=== PATIENT | male | born 1960 | race Caucasian/White ===

== ENCOUNTER 2017-10-10 15:41 | Emergency (ER) | payer OTHER ==
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
[2017-10-10 16:11] VITALS: BP 125/76; PULSE 93; TEMP 99.2; BMI 39.9
--- NOTE | 2017-10-10 18:25 | PDOC ---
Attending Attestation - Resident Resident Name: Tigre Sheets - ED Attending Attestation I have performed the following: I have examined & evaluated the patient, The case was reviewed & discussed with the resident, I agree w/resident's findings & plan, Exceptions are as noted - HPI HPI: 10/10/17 18:22 56 M with h/o DVT/PE on xarelto, ETOH abuse presents to ED after being found intoxicated. Pt was picked up by EMS after they found him lying on the ground. Pt denies any injury. He admits to drinking today and denies any other substances. Pt denies pain anywhere other than his baseline chronic lower back pain. Denies CP/SOB. Denies IRWIN/N/V. - Physicial Exam PE: 10/10/17 18:23 "GENERAL: Awake, alert, somnolent, in no acute distress. HEAD: No signs of trauma EYES: PERRLA, EOMI, sclera anicteric, conjunctiva clear ENT: Auricles normal inspection, hearing grossly normal, nares patent, oropharynx clear without exudates. Moist mucosa NECK: Nontender, no stepoffs, Normal ROM, supple, no lymphadenopathy, JVD, or masses LUNGS: Breath sounds equal, clear to auscultation bilaterally. No wheezes, and no crackles HEART: Regular rate and rhythm, normal S1 and S2, no murmurs, rubs or gallops ABDOMEN: Soft, nontender, normoactive bowel sounds. No guarding, no rebound. No masses EXTREMITIES: Normal range of motion, no edema. No clubbing or cyanosis. No cords, erythema, or tenderness NEUROLOGICAL: Cranial nerves II through XII intact. 5/5 strength and sensation in all extremities, + slurred speech SKIN: Warm, Dry, normal turgor, no rashes or lesions noted. " - Medical Decision Making 10/10/17 18:24 56 M presenting to ED acutely intoxicated. Likely ETOH. Pt with no external signs of trauma but given anticoagulation with xarelto, will obtain head CT. Pt without any track zhu on his skin. Low suspicion for other substance abuse. - CT head - Reassess and re-check vitals when clinically sober Pt signed out to oncoming attending at 7pm, pending CT and re-evaluation when sober.
== END 2017-10-10 22:54 | disposition home or self-care (01) ==
LOC: JER 15:41
DX: F10.120 Alcohol abuse with intoxication, uncomplicated (principal); Y90.9 Presence of alcohol in blood, level not specified; F11.20 Opioid dependence, uncomplicated; F13.10 Sedative, hypnotic or anxiolytic abuse, uncomplicated; K21.9 Gastro-esophageal reflux disease without esophagitis; Z86.718 Personal history of other venous thrombosis and embolism; Z86.711 Personal history of pulmonary embolism; Z79.01 Long term (current) use of anticoagulants
CPT/HCPCS: 70450-TC; 82962; 99282-25

== ENCOUNTER 2020-08-25 06:55 | Inpatient (IN) | payer OTHER ==
[2020-08-25 08:02] LABS: BASO % 0.4 % (0-2.0); EOS % 2.1 % (0-4.5); HEMOGLOBIN 11.2 GM/dL (11.7-16.9); LYMPH % 3.3 % (8-40); MCH 29.3 pg (25.7-33.7); MCHC 33.9 g/dl (32.0-35.9); MEAN CELL VOLUME 86.3 fl (80-96); MEAN PLT VOLUME 8.5 fl (7.5-11.1); MONO % 5.6 % (3.8-10.2); NEUT % 88.6 % (42.8-82.8); PLATELET COUNT 187 K/MM3 (134-434); RBC 3.82 M/mm3 (4.00-5.60); RDW 16.9 % (11.9-15.9); WHITE BLOOD COUNT 8.4 K/mm3 (4.0-10.0)
[2020-08-25 08:12] LABS: INR 1.59 (0.83-1.09)
[2020-08-25 08:15] LABS: ACTIVATED PTT 27.5 SECONDS (25.2-36.5)
[2020-08-25 08:27] LABS: ALBUMIN 2.8 g/dl (3.4-5.0); BLOOD UREA NITROGEN 13.5 mg/dL (7-18); MAGNESIUM 1.8 mg/dL (1.8-2.4)
[2020-08-25 08:30] LABS: PHOSPHOROUS 2.8 mg/dL (2.5-4.9)
[2020-08-25 08:32] LABS: BILIRUBIN,TOTAL 0.7 mg/dL (0.2-1); TOT PROT 6.6 g/dl (6.4-8.2)
[2020-08-25 08:35] LABS: N-TERMINAL BNP 294.8 pg/ml (5-125)
[2020-08-25] MEDS ORDERED: SODIUM CHLORIDE 0.9% 500 ML INFUS.BAG IV ONE (08:39)
[2020-08-25] MEDS ORDERED: METHADONE HCL 10 MG TABLET (FOR DETOX USE ONLY) PO ONE ×2 (09:19→09:31)
[2020-08-25] MEDS ORDERED: METHADONE HCL 40 MG DISPERSABLE TABLET ONE (09:33)
[2020-08-25] MEDS ORDERED: AZITHROMYCIN IVPB 500 MG in DEXTROSE 5%-WATER - 250 ML IVPB ONE (11:02)
[2020-08-25] MEDS ORDERED: CEFTRIAXONE 1,000 MG in DEXTROSE 5%-WATER - 50 ML IVPB ONE (11:02)
[2020-08-25] MEDS ORDERED: CEFTRIAXONE 1 GM/50 ML BAG ONE (12:57)
[2020-08-25] MEDS ORDERED: AZITHROMYCIN IVPB 500 MG/250 ML BAG IVPB ONE (12:58)
[2020-08-25] MEDS ORDERED: PT OWN MED DRAWER 7, Y5N ONE ×2 (14:34→16:46)
[2020-08-25] MEDS ORDERED: ALBUTEROL SO4 2.5/IPRATROPIUM 0.5 INH SOL 3 ML VIAL.NEB. NEB PRN (14:53)
[2020-08-25] MEDS: GABAPENTIN 300 MG CAPSULE PO SCH ×2 (15:01→21:17)
[2020-08-25] MEDS ORDERED: MAGNESIUM SULF 50% (8.12 MEQ/2 ML-1 GM VIAL) IVPB ONE (16:11)
[2020-08-25] MEDS ORDERED: MAGNESIUM SULFATE IN WATER 2 GM/50 ML IVPB IVPB ONE (16:45)
[2020-08-25] MEDS: ALLOPURINOL 100 MG TABLET (FP) PO SCH (17:57)
[2020-08-25] MEDS ORDERED: DEXTROSE 5%-WATER 100 ML IVPB ONE (21:14)
[2020-08-25] MEDS ORDERED: DOXYCYCLINE HYCLATE 100 MG VIAL ONE (21:14)
[2020-08-25] MEDS: RIVAROXABAN 20 MG TABLET PO SCH (21:17)
[2020-08-25] MEDS: DOXYCYCLINE INJECTION 100 MG in DEXTROSE 5%-WATER 100 ML IVPB SCH (21:18)
[2020-08-25] MEDS: ROSUVASTATIN CA 10 MG TABLET (FP) PO SCH (21:18)
[2020-08-25] MEDS ORDERED: GABAPENTIN 300 MG CAPSULE PO ONE (21:34)
[2020-08-26 01:15] VITALS: BMI 38.0
[2020-08-26] MEDS ORDERED: METHADONE HCL 40 MG DISPERSABLE TABLET PO SCH (06:00)
[2020-08-26] MEDS: GABAPENTIN 300 MG CAPSULE PO SCH ×4 (06:18→21:30)
[2020-08-26] MEDS: METHADONE HCL 40 MG DISPERSABLE TABLET PO SCH (06:18)
[2020-08-26 07:12] LABS: BASO % 0.1 % (0-2.0); EOS % 3.6 % (0-4.5); HEMATOCRIT 31.7 % (35.4-49); HEMOGLOBIN 10.6 GM/dL (11.7-16.9); LYMPH % 6.5 % (8-40); MCH 28.9 pg (25.7-33.7); MCHC 33.5 g/dl (32.0-35.9); MEAN CELL VOLUME 86.3 fl (80-96); MEAN PLT VOLUME 8.6 fl (7.5-11.1); MONO % 7.7 % (3.8-10.2); NEUT % 82.1 % (42.8-82.8); PLATELET COUNT 184 K/MM3 (134-434); RBC 3.68 M/mm3 (4.00-5.60); RDW 16.9 % (11.9-15.9); WHITE BLOOD COUNT 7.6 K/mm3 (4.0-10.0)
[2020-08-26 07:25] LABS: CALCIUM 7.5 mg/dL (8.5-10.1)
[2020-08-26 07:26] LABS: ALBUMIN 2.4 g/dl (3.4-5.0); BLOOD UREA NITROGEN 8.2 mg/dL (7-18); INR 1.61 (0.83-1.09); MAGNESIUM 2.1 mg/dL (1.8-2.4); PROTHROMBIN TIME (PATIENT) 19.2 SEC (9.7-13.0)
[2020-08-26 07:29] LABS: CREATININE 0.8 mg/dL (0.55-1.3); PHOSPHOROUS 3.6 mg/dL (2.5-4.9)
[2020-08-26 07:30] LABS: BILIRUBIN,TOTAL 0.5 mg/dL (0.2-1)
[2020-08-26] MEDS ORDERED: POTASSIUM CHLORIDE TABS 20 MEQ TABLET.ER (FP) PO ONE (08:50)
[2020-08-26] MEDS ORDERED: AZITHROMYCIN IVPB 500 MG/250 ML BAG IVPB SCH (10:00)
[2020-08-26] MEDS ORDERED: CEFTRIAXONE 1 GM in DEXTROSE 5%-WATER - 50 ML IVPB ONE (10:00)
[2020-08-26] MEDS ORDERED: DOXYCYCLINE HYCLATE 100 MG VIAL ONE ×2 (10:04→21:26)
[2020-08-26] MEDS ORDERED: DEXTROSE 5%-WATER 100 ML IVPB ONE ×2 (10:04→21:27)
[2020-08-26] MEDS ORDERED: cefTRIAXone SODIUM 1 GM VIAL ONE (10:05)
[2020-08-26] MEDS ORDERED: DEXTROSE 5%-WATER - 50 ML IVPB ONE (10:05)
[2020-08-26] MEDS: TAMSULOSIN HCL 0.4 MG CAP PO SCH (10:08)
[2020-08-26] MEDS: LOSARTAN POTASSIUM 25 MG TABLET PO SCH (10:09)
[2020-08-26] MEDS: DOXYCYCLINE INJECTION 100 MG in DEXTROSE 5%-WATER 100 ML IVPB SCH ×2 (10:09→21:30)
[2020-08-26] MEDS: FAMOTIDINE 20 MG TABLET PO SCH (10:09)
[2020-08-26] MEDS: ALLOPURINOL 100 MG TABLET (FP) PO SCH (10:09)
[2020-08-26] MEDS: CITALOPRAM HYDROBROMIDE 10 MG TABLET PO SCH (10:09)
[2020-08-26] MEDS ORDERED: PT OWN MED DRAWER 7, Y5N ONE (13:01)
[2020-08-26] MEDS: RIVAROXABAN 20 MG TABLET PO SCH (16:34)
[2020-08-26] MEDS: ROSUVASTATIN CA 10 MG TABLET (FP) PO SCH (21:31)
[2020-08-27] MEDS: METHADONE HCL 40 MG DISPERSABLE TABLET PO SCH (05:51)
[2020-08-27] MEDS: GABAPENTIN 300 MG CAPSULE PO SCH ×3 (05:52→21:44)
[2020-08-27 08:38] LABS: BASO % 0.4 % (0-2.0); EOS % 6.9 % (0-4.5); HEMATOCRIT 35.2 % (35.4-49); HEMOGLOBIN 11.8 GM/dL (11.7-16.9); LYMPH % 6.4 % (8-40); MCH 29.1 pg (25.7-33.7); MCHC 33.5 g/dl (32.0-35.9); MEAN PLT VOLUME 8.1 fl (7.5-11.1); MONO % 7.1 % (3.8-10.2); NEUT % 79.2 % (42.8-82.8); PLATELET COUNT 221 K/MM3 (134-434); RBC 4.05 M/mm3 (4.00-5.60); RDW 17.2 % (11.9-15.9); WHITE BLOOD COUNT 8.1 K/mm3 (4.0-10.0)
[2020-08-27 09:10] LABS: ALBUMIN 2.7 g/dl (3.4-5.0); BLOOD UREA NITROGEN 8.8 mg/dL (7-18)
[2020-08-27 09:13] LABS: CREATININE 0.9 mg/dL (0.55-1.3)
[2020-08-27 09:15] LABS: BILIRUBIN,TOTAL 0.4 mg/dL (0.2-1); TOT PROT 6.7 g/dl (6.4-8.2)
[2020-08-27] MEDS ORDERED: cefTRIAXone SODIUM 1 GM VIAL ONE (09:38)
[2020-08-27] MEDS ORDERED: DEXTROSE 5%-WATER - 50 ML IVPB ONE (09:38)
[2020-08-27] MEDS: FAMOTIDINE 20 MG TABLET PO SCH (10:01)
[2020-08-27] MEDS: CITALOPRAM HYDROBROMIDE 10 MG TABLET PO SCH (10:01)
[2020-08-27] MEDS: TAMSULOSIN HCL 0.4 MG CAP PO SCH (10:01)
[2020-08-27] MEDS: ALLOPURINOL 100 MG TABLET (FP) PO SCH (10:01)
[2020-08-27] MEDS: LOSARTAN POTASSIUM 25 MG TABLET PO SCH (10:02)
[2020-08-27] MEDS: CEFTRIAXONE 1 GM in DEXTROSE 5%-WATER - 50 ML IVPB SCH (10:02)
[2020-08-27] MEDS ORDERED: DOXYCYCLINE HYCLATE 100 MG VIAL ONE ×2 (10:55→21:36)
[2020-08-27] MEDS ORDERED: DEXTROSE 5%-WATER 100 ML IVPB ONE ×2 (10:56→21:36)
[2020-08-27] MEDS: DOXYCYCLINE INJECTION 100 MG in DEXTROSE 5%-WATER 100 ML IVPB SCH ×2 (11:02→21:43)
[2020-08-27] MEDS: RIVAROXABAN 20 MG TABLET PO SCH (16:44)
[2020-08-27] MEDS: ROSUVASTATIN CA 10 MG TABLET (FP) PO SCH (21:44)
[2020-08-28] MEDS: GABAPENTIN 300 MG CAPSULE PO SCH ×3 (05:52→21:10)
[2020-08-28] MEDS: METHADONE HCL 40 MG DISPERSABLE TABLET PO SCH (05:52)
[2020-08-28 06:56] LABS: BASO % 0.4 % (0-2.0); EOS % 10.1 % (0-4.5); HEMATOCRIT 31.4 % (35.4-49); HEMOGLOBIN 10.7 GM/dL (11.7-16.9); LYMPH % 11.6 % (8-40); MCH 29.4 pg (25.7-33.7); MEAN CELL VOLUME 86.5 fl (80-96); MEAN PLT VOLUME 8.1 fl (7.5-11.1); NEUT % 69.9 % (42.8-82.8); PLATELET COUNT 216 K/MM3 (134-434); RBC 3.63 M/mm3 (4.00-5.60); RDW 17.2 % (11.9-15.9); WHITE BLOOD COUNT 5.9 K/mm3 (4.0-10.0)
[2020-08-28 07:30] LABS: CALCIUM 7.8 mg/dL (8.5-10.1)
[2020-08-28 07:31] LABS: ALBUMIN 2.4 g/dl (3.4-5.0); BLOOD UREA NITROGEN 9.9 mg/dL (7-18); MAGNESIUM 2.1 mg/dL (1.8-2.4)
[2020-08-28 07:35] LABS: BILIRUBIN,TOTAL 0.4 mg/dL (0.2-1); TOT PROT 6.2 g/dl (6.4-8.2)
[2020-08-28] MEDS ORDERED: POTASSIUM CHLORIDE TABS 20 MEQ TABLET.ER (FP) PO ONE (08:45)
[2020-08-28] MEDS ORDERED: DEXTROSE 5%-WATER 100 ML IVPB ONE ×2 (09:19→21:00)
[2020-08-28] MEDS ORDERED: DOXYCYCLINE HYCLATE 100 MG VIAL ONE ×2 (09:19→21:00)
[2020-08-28] MEDS ORDERED: DEXTROSE 5%-WATER - 50 ML IVPB ONE (09:20)
[2020-08-28] MEDS ORDERED: cefTRIAXone SODIUM 1 GM VIAL ONE (09:20)
[2020-08-28] MEDS: ALLOPURINOL 100 MG TABLET (FP) PO SCH (10:03)
[2020-08-28] MEDS: FAMOTIDINE 20 MG TABLET PO SCH (10:03)
[2020-08-28] MEDS: TAMSULOSIN HCL 0.4 MG CAP PO SCH (10:04)
[2020-08-28] MEDS: CITALOPRAM HYDROBROMIDE 10 MG TABLET PO SCH (10:04)
[2020-08-28] MEDS: LOSARTAN POTASSIUM 25 MG TABLET PO SCH (10:04)
[2020-08-28] MEDS: DOXYCYCLINE INJECTION 100 MG in DEXTROSE 5%-WATER 100 ML IVPB SCH ×2 (10:05→21:09)
[2020-08-28] MEDS: CEFTRIAXONE 1 GM in DEXTROSE 5%-WATER - 50 ML IVPB SCH (10:05)
[2020-08-28] MEDS: POLYETHYLENE GLYCOL 3350 119 GM BTL PO SCH ×2 (12:56→21:10)
[2020-08-28] MEDS ORDERED: BISACODYL 5 MG TABLET.DR (FP) PO ONE (13:00)
[2020-08-28] MEDS ORDERED: DOCUSATE SODIUM 100 MG CAPSULE (FP) PO ONE (13:00)
[2020-08-28] MEDS: RIVAROXABAN 20 MG TABLET PO SCH (17:43)
[2020-08-28] MEDS ORDERED: PT OWN MED DRAWER 7, Y5N ONE (21:04)
[2020-08-28] MEDS: ROSUVASTATIN CA 10 MG TABLET (FP) PO SCH (21:10)
[2020-08-28] MEDS: BUDESONIDE/FORMETEROL FUMARATE 160/4.5 mcg INHALER IH SCH (21:10)
[2020-08-29] MEDS: GABAPENTIN 300 MG CAPSULE PO SCH (06:47)
[2020-08-29] MEDS: METHADONE HCL 40 MG DISPERSABLE TABLET PO SCH (06:47)
[2020-08-29 07:01] LABS: ALBUMIN 2.6 g/dl (3.4-5.0); BLOOD UREA NITROGEN 10.1 mg/dL (7-18); CALCIUM 7.8 mg/dL (8.5-10.1)
[2020-08-29 07:04] LABS: BASO % 0.4 % (0-2.0); EOS % 7.6 % (0-4.5); HEMATOCRIT 34.1 % (35.4-49); HEMOGLOBIN 11.3 GM/dL (11.7-16.9); LYMPH % 12.3 % (8-40); MCH 28.8 pg (25.7-33.7); MCHC 33.1 g/dl (32.0-35.9); MEAN CELL VOLUME 87.2 fl (80-96); MEAN PLT VOLUME 7.8 fl (7.5-11.1); MONO % 6.8 % (3.8-10.2); NEUT % 72.9 % (42.8-82.8); PLATELET COUNT 241 K/MM3 (134-434); RBC 3.91 M/mm3 (4.00-5.60); RDW 16.7 % (11.9-15.9); WHITE BLOOD COUNT 7.7 K/mm3 (4.0-10.0)
[2020-08-29 07:05] LABS: TOT PROT 6.4 g/dl (6.4-8.2)
[2020-08-29 07:09] LABS: BILIRUBIN,TOTAL 0.4 mg/dL (0.2-1)
[2020-08-29 08:00] VITALS: TEMP 98.1
[2020-08-29] MEDS ORDERED: DOXYCYCLINE HYCLATE 100 MG VIAL ONE (10:31)
[2020-08-29] MEDS ORDERED: DEXTROSE 5%-WATER 100 ML IVPB ONE (10:32)
[2020-08-29] MEDS ORDERED: cefTRIAXone SODIUM 1 GM VIAL ONE (10:33)
[2020-08-29] MEDS ORDERED: DEXTROSE 5%-WATER - 50 ML IVPB ONE (10:33)
[2020-08-29] MEDS: BUDESONIDE/FORMETEROL FUMARATE 160/4.5 mcg INHALER IH SCH (10:37)
[2020-08-29] MEDS: LOSARTAN POTASSIUM 25 MG TABLET PO SCH (10:37)
[2020-08-29] MEDS: ALLOPURINOL 100 MG TABLET (FP) PO SCH (10:37)
[2020-08-29] MEDS: FAMOTIDINE 20 MG TABLET PO SCH (10:37)
[2020-08-29] MEDS: CITALOPRAM HYDROBROMIDE 10 MG TABLET PO SCH (10:37)
[2020-08-29] MEDS: TAMSULOSIN HCL 0.4 MG CAP PO SCH (10:37)
[2020-08-29] MEDS: DOXYCYCLINE INJECTION 100 MG in DEXTROSE 5%-WATER 100 ML IVPB SCH (10:41)
[2020-08-29] MEDS: CEFTRIAXONE 1 GM in DEXTROSE 5%-WATER - 50 ML IVPB SCH (10:41)
[2020-08-29] MEDS: POLYETHYLENE GLYCOL 3350 119 GM BTL PO SCH (10:49)
[2020-08-29 12:10] VITALS: BP 110/71; PULSE 93
== END 2020-08-29 14:13 | disposition home health service (06) | DRG 139 ==
LOC: JER 06:55 → JERBED 11:45 → J5S 18:17 → J4S 08-26 02:19
PROVIDERS: ATTEND Nurse Practitioner Family
DX: J18.9 Pneumonia, unspecified organism (principal); E78.5 Hyperlipidemia, unspecified; Z86.711 Personal history of pulmonary embolism; Z86.718 Personal history of other venous thrombosis and embolism; M10.9 Gout, unspecified; F11.20 Opioid dependence, uncomplicated; I10 Essential (primary) hypertension; J96.01 Acute respiratory failure with hypoxia; E66.9 Obesity, unspecified; Z68.38 Body mass index [BMI] 38.0-38.9, adult; M54.5 Low back pain
CPT/HCPCS: 36415; 71045-TC-FY; 71275-TC; 80053; 83735; 83880; 84100; 85025; 85610; 85730; 86769; 87040; 87070; 87077; 87205; 87804; 87899; 93005; 93010; 93971-TC; 94761; 97116-GP; 97161-GP; 99285-25; C9803; U0003; U0005

== ENCOUNTER 2021-01-16 09:13 | Inpatient (IN) | payer OTHER ==
[2021-01-16] MEDS ORDERED: methylPREDNISolone NA SUCC 40 MG/1 ML VIAL IVPUSH ONE (09:28)
[2021-01-16] MEDS ORDERED: methylPREDNISolone NA SUCC 40 MG/1 ML VIAL ONE (09:40)
[2021-01-16] MEDS ORDERED: ACETAMINOPHEN 1000 MG/100 ML VIAL IVPB ONE (09:51)
[2021-01-16] MEDS: ALBUTEROL SO4 2.5/IPRATROPIUM 0.5 INH SOL 3 ML VIAL.NEB. NEB SCH ×4 (10:00→11:30)
[2021-01-16 10:24] LABS: BASO % 0.4 % (0-2.0); EOS % 3.6 % (0-4.5); HEMATOCRIT 32.2 % (35.4-49); HEMOGLOBIN 10.8 GM/dL (11.7-16.9); LYMPH % 5.5 % (8-40); MCH 29.8 pg (25.7-33.7); MCHC 33.6 g/dl (32.0-35.9); MEAN CELL VOLUME 88.8 fl (80-96); MEAN PLT VOLUME 8.2 fl (7.5-11.1); MONO % 6.3 % (3.8-10.2); NEUT % 84.2 % (42.8-82.8); PLATELET COUNT 241 10^3/uL (134-434); RBC 3.63 M/mm3 (4.00-5.60); WHITE BLOOD COUNT 8.3 K/mm3 (4.0-10.0)
[2021-01-16 10:36] LABS: VENOUS BASE EXCESS 2.7 mmol/L (-2-2); VENOUS O2 SATURATION 74.7 % (70-80); VENOUS PCO2 44.5 mmHg (38-52); VENOUS PH 7.413 (7.310-7.410)
[2021-01-16] MEDS ORDERED: ACETAMINOPHEN INJECTION 100 ML IVPB ONE (10:40)
[2021-01-16 10:43] LABS: CHLORIDE 101 mmol/L (98-107); SODIUM 136 mmol/L (136-145)
[2021-01-16 10:45] LABS: ALBUMIN 2.6 g/dl (3.4-5.0); ANION GAP 8 MMOL/L (8-16); CO2 28 mmol/L (21-32)
[2021-01-16 10:46] LABS: GLUCOSE,RANDOM 100 mg/dL (74-106)
[2021-01-16 10:49] LABS: CREATININE 1.1 mg/dL (0.55-1.3); SGOT/AST 84 U/L (15-37); SGPT/ALT 31 U/L (13-61)
[2021-01-16 10:50] LABS: BILIRUBIN,TOTAL 0.6 mg/dL (0.2-1); TOT PROT 6.9 g/dl (6.4-8.2)
[2021-01-16 10:51] LABS: ALK PHOS 105 U/L (45-117)
[2021-01-16] MEDS ORDERED: CEFTRIAXONE 1 GM in DEXTROSE 5%-WATER - 100 ML IVPB ONE (12:56)
[2021-01-16] MEDS ORDERED: CEFTRIAXONE 1 GM/50 ML BAG ONE (13:08)
[2021-01-16 13:29] LABS: N-TERMINAL BNP 1630.9 pg/ml (5-125)
[2021-01-16] MEDS ORDERED: AZITHROMYCIN IVPB 500 MG/250 ML BAG IVPB ONE ×2 (13:52→14:08)
[2021-01-16] MEDS ORDERED: PANTOPRAZOLE 40 MG TABLET ONE (14:08)
[2021-01-16] MEDS: PANTOPRAZOLE 40 MG TABLET PO SCH (14:22)
[2021-01-16] MEDS ORDERED: SODIUM CHLORIDE 1,000 ML IV SCH ×2 (14:45→20:15)
[2021-01-16] MEDS ORDERED: ALBUTEROL SO4 HFA INHALER IH PRN ×2 (14:53→15:02)
[2021-01-16] MEDS ORDERED: ENOXAPARIN NA (PORCINE) 40 MG/0.4 ML DISP.SYRIN SQ SCH (15:00)
[2021-01-16] MEDS ORDERED: GABAPENTIN 100 MG CAPSULE ONE (15:04)
[2021-01-16] MEDS ORDERED: LOSARTAN POTASSIUM 50 MG TABLET ONE (15:04)
[2021-01-16] MEDS: GABAPENTIN 300 MG CAPSULE PO SCH ×2 (15:07→21:17)
[2021-01-16] MEDS: LOSARTAN POTASSIUM 50 MG TABLET PO SCH (15:07)
[2021-01-16 15:37] LABS: PH,URINE 5.5 (5.0-8.0); URINE APPEARANCE CLEAR; URINE BILIRUBIN NEGATIVE (NEGATIVE); URINE COLOR YELLOW; URINE GLUCOSE (UA) TRACE (NEGATIVE); URINE KETONE TRACE (NEGATIVE); URINE LEUK ESTERASE NEGATIVE (NEGATIVE); URINE NITRITE NEGATIVE (NEGATIVE); URINE PROTEIN NEGATIVE (NEGATIVE); URINE UROBILINOGEN 0.2 mg/dL (0.2-1.0)
[2021-01-16] MEDS ORDERED: ALBUTEROL SO4 2.5/IPRATROPIUM 0.5 INH SOL 3 ML VIAL.NEB. NEB PRN (15:49)
[2021-01-16 16:34] VITALS: BMI 37.5
[2021-01-16] MEDS ORDERED: FLU VACC QS2021-22(6MOS UP)/PF 60 MCG/0.5 ML SYRINGE IM ONE (16:34)
[2021-01-16] MEDS: RIVAROXABAN 20 MG TABLET PO SCH (17:32)
[2021-01-16] MEDS: methylPREDNISolone NA SUCC 40 MG/1 ML VIAL IVPUSH SCH (17:32)
[2021-01-16] MEDS ORDERED: PT OWN MED DRAWER 7, Y5N ONE (17:36)
[2021-01-16] MEDS: ALBUTEROL SO4 0.083% IH SOL 2.5 MG/3 ML VIAL.NEB. NEB SCH ×3 (17:52→23:50)
[2021-01-16] MEDS ORDERED: INSULIN SLIDING SCALE (NOVOLOG) 1 VIAL SQ ONE (17:58)
[2021-01-16] MEDS ORDERED: methylPREDNISolone NA SUCC 40 MG/1 ML VIAL IVPUSH SCH (18:00)
[2021-01-16 18:33] LABS: OPIATES, URI NEGATIVE (NEGATIVE); PHENCYCLIDINE,URINE NEGATIVE (NEGATIVE); URINE BARBITURATES NEGATIVE (NEGATIVE)
[2021-01-16 18:34] LABS: COCAINE, UR NEGATIVE (NEGATIVE); URINE BENZODIAZEPINES NEGATIVE (NEGATIVE)
[2021-01-16 18:38] LABS: METHADONE, UR POSITIVE (NEGATIVE); URINE AMPHETAMINES NEGATIVE (NEGATIVE)
[2021-01-16 19:51] LABS: LACTIC ACID 2.3 mmol/L (0.4-2.0)
[2021-01-16] MEDS: ROSUVASTATIN CA 10 MG TABLET (FP) PO SCH (21:17)
[2021-01-16] MEDS: BUDESONIDE/FORMETEROL FUMARATE 160/4.5 mcg INHALER IH SCH (21:39)
[2021-01-17] MEDS: methylPREDNISolone NA SUCC 40 MG/1 ML VIAL IVPUSH SCH ×3 (01:33→18:10)
[2021-01-17] MEDS: ALBUTEROL SO4 0.083% IH SOL 2.5 MG/3 ML VIAL.NEB. NEB SCH ×5 (04:23→20:09)
[2021-01-17] MEDS: GABAPENTIN 300 MG CAPSULE PO SCH ×3 (05:46→21:00)
[2021-01-17] MEDS: methaDONE HCL 40 MG DISPERSABLE TABLET PO SCH (06:20)
[2021-01-17 09:52] LABS: HEMATOCRIT 32.6 % (35.4-49); HEMOGLOBIN 10.8 GM/dL (11.7-16.9); MEAN CELL VOLUME 87.7 fl (80-96); MEAN PLT VOLUME 8.3 fl (7.5-11.1); PLATELET COUNT 245 10^3/uL (134-434); RBC 3.72 M/mm3 (4.00-5.60); RDW 15.6 % (11.9-15.9); WHITE BLOOD COUNT 7.8 K/mm3 (4.0-10.0)
[2021-01-17 10:30] LABS: ALBUMIN 2.7 g/dl (3.4-5.0); BLOOD UREA NITROGEN 14.6 mg/dL (7-18); CALCIUM 8.4 mg/dL (8.5-10.1)
[2021-01-17] MEDS ORDERED: DEXTROSE 5%-WATER - 50 ML IVPB ONE (10:32)
[2021-01-17] MEDS ORDERED: cefTRIAXone SODIUM 1 GM VIAL ONE (10:32)
[2021-01-17 10:33] LABS: CREATININE 0.9 mg/dL (0.55-1.3); PHOSPHOROUS 3.8 mg/dL (2.5-4.9)
[2021-01-17 10:34] LABS: BILIRUBIN,TOTAL 0.6 mg/dL (0.2-1)
[2021-01-17 10:35] LABS: TOT PROT 6.8 g/dl (6.4-8.2)
[2021-01-17] MEDS: ALLOPURINOL 100 MG TABLET (FP) PO SCH (10:37)
[2021-01-17] MEDS: PANTOPRAZOLE 40 MG TABLET PO SCH (10:37)
[2021-01-17] MEDS: CITALOPRAM HYDROBROMIDE 20 MG TABLET PO SCH (10:37)
[2021-01-17] MEDS: LOSARTAN POTASSIUM 50 MG TABLET PO SCH (10:37)
[2021-01-17] MEDS: TAMSULOSIN HCL 0.4 MG CAP PO SCH (10:37)
[2021-01-17] MEDS: CEFTRIAXONE 1 GM in DEXTROSE 5%-WATER - 50 ML IVPB SCH (10:38)
[2021-01-17] MEDS: BUDESONIDE/FORMETEROL FUMARATE 160/4.5 mcg INHALER IH SCH ×2 (11:04→21:00)
[2021-01-17] MEDS: AZITHROMYCIN IVPB 250 MG in DEXTROSE 5%-WATER - 250 ML IVPB SCH (11:06)
[2021-01-17] MEDS ORDERED: GABAPENTIN 300 MG CAPSULE PO ONE (12:34)
[2021-01-17 12:46] LABS: ANISOCYTOSIS 1+; MACROCYTOSIS 0; PLATELET ESTIMATE NORMAL; TARGET CELLS 1+
[2021-01-17] MEDS: TIOTROPIUM BROMIDE 2.5 MCG (SPIRIVA) RESPIMAT INHALER IH SCH (14:50)
[2021-01-17] MEDS: RIVAROXABAN 20 MG TABLET PO SCH (18:10)
[2021-01-17] MEDS: ROSUVASTATIN CA 10 MG TABLET (FP) PO SCH (21:00)
[2021-01-18] MEDS: ALBUTEROL SO4 0.083% IH SOL 2.5 MG/3 ML VIAL.NEB. NEB SCH ×7 (00:05→23:34)
[2021-01-18] MEDS: methylPREDNISolone NA SUCC 40 MG/1 ML VIAL IVPUSH SCH ×3 (01:39→17:43)
[2021-01-18] MEDS: GABAPENTIN 300 MG CAPSULE PO SCH ×3 (05:29→21:04)
[2021-01-18] MEDS: methaDONE HCL 40 MG DISPERSABLE TABLET PO SCH (05:29)
[2021-01-18 08:06] LABS: HEMATOCRIT 32.3 % (35.4-49); HEMOGLOBIN 10.8 GM/dL (11.7-16.9); MCH 29.8 pg (25.7-33.7); MCHC 33.4 g/dl (32.0-35.9); MEAN CELL VOLUME 89.1 fl (80-96); MEAN PLT VOLUME 8.2 fl (7.5-11.1); PLATELET COUNT 300 10^3/uL (134-434); RBC 3.63 M/mm3 (4.00-5.60); WHITE BLOOD COUNT 6.4 K/mm3 (4.0-10.0)
[2021-01-18 08:33] LABS: ALBUMIN 2.7 g/dl (3.4-5.0); BLOOD UREA NITROGEN 16.1 mg/dL (7-18)
[2021-01-18 08:35] LABS: BILIRUBIN,TOTAL 0.3 mg/dL (0.2-1); TOT PROT 6.8 g/dl (6.4-8.2)
[2021-01-18 08:36] LABS: CALCIUM 8.4 mg/dL (8.5-10.1)
[2021-01-18 08:37] LABS: MAGNESIUM 2.2 mg/dL (1.8-2.4)
[2021-01-18] MEDS ORDERED: DEXTROSE 5%-WATER - 50 ML IVPB ONE (09:44)
[2021-01-18] MEDS ORDERED: cefTRIAXone SODIUM 1 GM VIAL ONE (09:44)
[2021-01-18] MEDS ORDERED: PT OWN MED DRAWER 7, Y5N ONE (09:44)
[2021-01-18] MEDS: CEFTRIAXONE 1 GM in DEXTROSE 5%-WATER - 50 ML IVPB SCH (09:54)
[2021-01-18] MEDS: ALLOPURINOL 100 MG TABLET (FP) PO SCH (09:54)
[2021-01-18] MEDS: PANTOPRAZOLE 40 MG TABLET PO SCH (09:54)
[2021-01-18] MEDS: TAMSULOSIN HCL 0.4 MG CAP PO SCH (09:54)
[2021-01-18] MEDS: CITALOPRAM HYDROBROMIDE 20 MG TABLET PO SCH (09:54)
[2021-01-18] MEDS: LOSARTAN POTASSIUM 50 MG TABLET PO SCH (09:55)
[2021-01-18] MEDS: BUDESONIDE/FORMETEROL FUMARATE 160/4.5 mcg INHALER IH SCH ×2 (09:55→21:04)
[2021-01-18] MEDS: TIOTROPIUM BROMIDE 2.5 MCG (SPIRIVA) RESPIMAT INHALER IH SCH (09:55)
[2021-01-18 12:01] LABS: ANISOCYTOSIS 1+; MACROCYTOSIS 0; PLATELET ESTIMATE NORMAL
[2021-01-18] MEDS: AZITHROMYCIN IVPB 250 MG in DEXTROSE 5%-WATER - 250 ML IVPB SCH (13:40)
[2021-01-18] MEDS: RIVAROXABAN 20 MG TABLET PO SCH (17:43)
[2021-01-18] MEDS: ROSUVASTATIN CA 10 MG TABLET (FP) PO SCH (21:04)
[2021-01-18] MEDS ORDERED: ACETAMINOPHEN 325 MG TABLET (FP) PO ONE (21:54)
[2021-01-18] MEDS ORDERED: traMADol HCL 50 MG TABLET PO ONE (23:26)
[2021-01-19] MEDS: methylPREDNISolone NA SUCC 40 MG/1 ML VIAL IVPUSH SCH ×3 (01:59→19:49)
[2021-01-19] MEDS: ALBUTEROL SO4 0.083% IH SOL 2.5 MG/3 ML VIAL.NEB. NEB SCH ×5 (03:53→20:10)
[2021-01-19] MEDS: methaDONE HCL 40 MG DISPERSABLE TABLET PO SCH (06:23)
[2021-01-19] MEDS: GABAPENTIN 300 MG CAPSULE PO SCH ×3 (06:23→21:12)
[2021-01-19 08:44] LABS: BASO % 0.1 % (0-2.0); EOS % 0.1 % (0-4.5); HEMATOCRIT 32.4 % (35.4-49); HEMOGLOBIN 10.9 GM/dL (11.7-16.9); LYMPH % 7.5 % (8-40); MCH 29.5 pg (25.7-33.7); MCHC 33.5 g/dl (32.0-35.9); MEAN CELL VOLUME 88.2 fl (80-96); MONO % 3.4 % (3.8-10.2); NEUT % 88.9 % (42.8-82.8); PLATELET COUNT 321 10^3/uL (134-434); RBC 3.68 M/mm3 (4.00-5.60); RDW 15.6 % (11.9-15.9); WHITE BLOOD COUNT 5.5 K/mm3 (4.0-10.0)
[2021-01-19 09:25] LABS: ALBUMIN 2.7 g/dl (3.4-5.0)
[2021-01-19 09:26] LABS: BILIRUBIN,TOTAL 0.6 mg/dL (0.2-1)
[2021-01-19 09:27] LABS: CALCIUM 8.6 mg/dL (8.5-10.1)
[2021-01-19 09:28] LABS: BLOOD UREA NITROGEN 18.4 mg/dL (7-18); MAGNESIUM 2.3 mg/dL (1.8-2.4)
[2021-01-19 09:30] LABS: TOT PROT 6.7 g/dl (6.4-8.2)
[2021-01-19] MEDS ORDERED: cefTRIAXone SODIUM 1 GM VIAL ONE (10:25)
[2021-01-19] MEDS ORDERED: DEXTROSE 5%-WATER - 50 ML IVPB ONE (10:25)
[2021-01-19] MEDS ORDERED: PT OWN MED DRAWER 7, Y5N ONE ×2 (10:25→19:31)
[2021-01-19] MEDS: LOSARTAN POTASSIUM 50 MG TABLET PO SCH (11:18)
[2021-01-19] MEDS: CEFTRIAXONE 1 GM in DEXTROSE 5%-WATER - 50 ML IVPB SCH (11:18)
[2021-01-19] MEDS: ALLOPURINOL 100 MG TABLET (FP) PO SCH (11:18)
[2021-01-19] MEDS: TAMSULOSIN HCL 0.4 MG CAP PO SCH (11:18)
[2021-01-19] MEDS: PANTOPRAZOLE 40 MG TABLET PO SCH (11:18)
[2021-01-19] MEDS: BUDESONIDE/FORMETEROL FUMARATE 160/4.5 mcg INHALER IH SCH ×2 (11:20→21:11)
[2021-01-19] MEDS: TIOTROPIUM BROMIDE 2.5 MCG (SPIRIVA) RESPIMAT INHALER IH SCH (11:20)
[2021-01-19] MEDS: CITALOPRAM HYDROBROMIDE 20 MG TABLET PO SCH (11:25)
[2021-01-19] MEDS: AZITHROMYCIN IVPB 250 MG in DEXTROSE 5%-WATER - 250 ML IVPB SCH (11:26)
[2021-01-19] MEDS: RIVAROXABAN 20 MG TABLET PO SCH (19:49)
[2021-01-19] MEDS: ROSUVASTATIN CA 10 MG TABLET (FP) PO SCH (21:12)
[2021-01-20] MEDS: ALBUTEROL SO4 0.083% IH SOL 2.5 MG/3 ML VIAL.NEB. NEB SCH ×6 (00:02→19:40)
[2021-01-20] MEDS: methylPREDNISolone NA SUCC 40 MG/1 ML VIAL IVPUSH SCH ×3 (02:16→18:41)
[2021-01-20] MEDS: methaDONE HCL 40 MG DISPERSABLE TABLET PO SCH (06:06)
[2021-01-20] MEDS: GABAPENTIN 300 MG CAPSULE PO SCH ×3 (06:06→22:22)
[2021-01-20] MEDS ORDERED: PT OWN MED DRAWER 7, Y5N ONE (10:03)
[2021-01-20] MEDS: AZITHROMYCIN IVPB 250 MG in DEXTROSE 5%-WATER - 250 ML IVPB SCH (10:13)
[2021-01-20] MEDS: BUDESONIDE/FORMETEROL FUMARATE 160/4.5 mcg INHALER IH SCH ×2 (10:14→22:22)
[2021-01-20] MEDS: CITALOPRAM HYDROBROMIDE 20 MG TABLET PO SCH (10:14)
[2021-01-20] MEDS: PANTOPRAZOLE 40 MG TABLET PO SCH (10:14)
[2021-01-20] MEDS: TAMSULOSIN HCL 0.4 MG CAP PO SCH (10:15)
[2021-01-20] MEDS: TIOTROPIUM BROMIDE 2.5 MCG (SPIRIVA) RESPIMAT INHALER IH SCH (10:15)
[2021-01-20] MEDS: CEFTRIAXONE 1 GM in DEXTROSE 5%-WATER - 50 ML IVPB SCH (10:15)
[2021-01-20] MEDS: LOSARTAN POTASSIUM 50 MG TABLET PO SCH (10:15)
[2021-01-20] MEDS: ALLOPURINOL 100 MG TABLET (FP) PO SCH (10:15)
[2021-01-20] MEDS ORDERED: cefTRIAXone SODIUM 1 GM VIAL ONE (10:24)
[2021-01-20] MEDS ORDERED: DEXTROSE 5%-WATER - 50 ML IVPB ONE (10:25)
[2021-01-20 11:16] LABS: HEMATOCRIT 33.4 % (35.4-49); HEMOGLOBIN 10.9 GM/dL (11.7-16.9); MCHC 32.5 g/dl (32.0-35.9); MEAN CELL VOLUME 89.2 fl (80-96); MEAN PLT VOLUME 8.6 fl (7.5-11.1); PLATELET COUNT 272 10^3/uL (134-434); RBC 3.75 M/mm3 (4.00-5.60); RDW 15.9 % (11.9-15.9)
[2021-01-20 11:31] LABS: WHITE BLOOD COUNT 13.9 K/mm3 (4.0-10.0)
[2021-01-20 11:34] LABS: ALBUMIN 2.8 g/dl (3.4-5.0); BILIRUBIN,TOTAL 0.3 mg/dL (0.2-1); CALCIUM 8.4 mg/dL (8.5-10.1); MAGNESIUM 2.2 mg/dL (1.8-2.4); TOT PROT 6.7 g/dl (6.4-8.2)
[2021-01-20 11:52] LABS: ANISOCYTOSIS 0; HELMET CELLS 0; HOWELL-JOLLY BODIES 0; MACROCYTOSIS 0; OVALOCYTE 0; PLATELET ESTIMATE NORMAL; ROULEAU 0; SICKELED CELLS 0; TARGET CELLS 0; TEAR DROP CELLS 0; TOXIC GRANULATION 0
[2021-01-20] MEDS: RIVAROXABAN 20 MG TABLET PO SCH (18:40)
[2021-01-20] MEDS: ROSUVASTATIN CA 10 MG TABLET (FP) PO SCH (22:22)
[2021-01-20] MEDS: MELATONIN 5 MG TABLETS PO PRN (22:22)
[2021-01-21] MEDS: ALBUTEROL SO4 0.083% IH SOL 2.5 MG/3 ML VIAL.NEB. NEB SCH ×6 (00:20→20:11)
[2021-01-21] MEDS: GABAPENTIN 300 MG CAPSULE PO SCH ×3 (05:44→21:15)
[2021-01-21] MEDS: methaDONE HCL 40 MG DISPERSABLE TABLET PO SCH (05:44)
[2021-01-21] MEDS: TAMSULOSIN HCL 0.4 MG CAP PO SCH (08:40)
[2021-01-21] MEDS ORDERED: DEXTROSE 5%-WATER - 50 ML IVPB ONE (08:59)
[2021-01-21] MEDS ORDERED: cefTRIAXone SODIUM 1 GM VIAL ONE (08:59)
[2021-01-21] MEDS: predniSONE 20 MG TABLET (UD) PO SCH (09:13)
[2021-01-21] MEDS: CEFTRIAXONE 1 GM in DEXTROSE 5%-WATER - 50 ML IVPB SCH (09:13)
[2021-01-21] MEDS: CITALOPRAM HYDROBROMIDE 20 MG TABLET PO SCH (09:13)
[2021-01-21] MEDS: LOSARTAN POTASSIUM 50 MG TABLET PO SCH (09:13)
[2021-01-21] MEDS: ALLOPURINOL 100 MG TABLET (FP) PO SCH (09:13)
[2021-01-21] MEDS: PANTOPRAZOLE 40 MG TABLET PO SCH (09:14)
[2021-01-21] MEDS: TIOTROPIUM BROMIDE 2.5 MCG (SPIRIVA) RESPIMAT INHALER IH SCH (09:15)
[2021-01-21] MEDS: BUDESONIDE/FORMETEROL FUMARATE 160/4.5 mcg INHALER IH SCH ×2 (09:15→21:16)
[2021-01-21 09:54] LABS: BLOOD UREA NITROGEN 20.8 mg/dL (7-18); GLUCOSE,RANDOM 78 mg/dL (74-106)
[2021-01-21 09:55] LABS: ALBUMIN 2.8 g/dl (3.4-5.0); BILIRUBIN,TOTAL 0.2 mg/dL (0.2-1); CALCIUM 8.3 mg/dL (8.5-10.1); CHLORIDE 105 mmol/L (98-107); CO2 27 mmol/L (21-32); MAGNESIUM 2.3 mg/dL (1.8-2.4); SGOT/AST 26 U/L (15-37); SGPT/ALT 29 U/L (13-61); SODIUM 138 mmol/L (136-145); TOT PROT 6.6 g/dl (6.4-8.2)
[2021-01-21 09:56] LABS: ALK PHOS 84 U/L (45-117)
[2021-01-21] MEDS: AZITHROMYCIN IVPB 250 MG in DEXTROSE 5%-WATER - 250 ML IVPB SCH (10:51)
[2021-01-21 11:27] LABS: BASO % 0.1 % (0-2.0); EOS % 0.6 % (0-4.5); HEMOGLOBIN 10.8 GM/dL (11.7-16.9); LYMPH % 16.7 % (8-40); MCH 29.3 pg (25.7-33.7); MCHC 32.8 g/dl (32.0-35.9); MEAN CELL VOLUME 89.2 fl (80-96); MEAN PLT VOLUME 7.7 fl (7.5-11.1); MONO % 5.1 % (3.8-10.2); NEUT % 77.5 % (42.8-82.8); PLATELET COUNT 330 10^3/uL (134-434); RBC 3.69 M/mm3 (4.00-5.60); RDW 15.9 % (11.9-15.9)
[2021-01-21] MEDS: RIVAROXABAN 20 MG TABLET PO SCH (17:15)
[2021-01-21] MEDS: ROSUVASTATIN CA 10 MG TABLET (FP) PO SCH (21:15)
[2021-01-21] MEDS: MELATONIN 5 MG TABLETS PO PRN (21:15)
[2021-01-22] MEDS: ALBUTEROL SO4 0.083% IH SOL 2.5 MG/3 ML VIAL.NEB. NEB SCH ×3 (00:18→07:59)
[2021-01-22] MEDS: GABAPENTIN 300 MG CAPSULE PO SCH ×2 (05:17→14:04)
[2021-01-22] MEDS: methaDONE HCL 40 MG DISPERSABLE TABLET PO SCH (05:18)
[2021-01-22] MEDS ORDERED: DEXTROSE 5%-WATER - 50 ML IVPB ONE (09:38)
[2021-01-22] MEDS ORDERED: cefTRIAXone SODIUM 1 GM VIAL ONE (09:38)
[2021-01-22] MEDS: CEFTRIAXONE 1 GM in DEXTROSE 5%-WATER - 50 ML IVPB SCH (10:10)
[2021-01-22] MEDS: CITALOPRAM HYDROBROMIDE 20 MG TABLET PO SCH (10:10)
[2021-01-22] MEDS: ALLOPURINOL 100 MG TABLET (FP) PO SCH (10:10)
[2021-01-22] MEDS: predniSONE 20 MG TABLET (UD) PO SCH (10:11)
[2021-01-22] MEDS: PANTOPRAZOLE 40 MG TABLET PO SCH (10:11)
[2021-01-22] MEDS: LOSARTAN POTASSIUM 50 MG TABLET PO SCH (10:11)
[2021-01-22] MEDS: TAMSULOSIN HCL 0.4 MG CAP PO SCH (10:11)
[2021-01-22] MEDS: BUDESONIDE/FORMETEROL FUMARATE 160/4.5 mcg INHALER IH SCH (10:12)
[2021-01-22] MEDS: TIOTROPIUM BROMIDE 2.5 MCG (SPIRIVA) RESPIMAT INHALER IH SCH (10:12)
[2021-01-22] MEDS: AZITHROMYCIN IVPB 250 MG in DEXTROSE 5%-WATER - 250 ML IVPB SCH (11:16)
[2021-01-22 13:29] VITALS: BP 117/53; PULSE 93; TEMP 98.2
[2021-01-22 13:37] LABS: BASO % 0.1 % (0-2.0); EOS % 2.3 % (0-4.5); HEMATOCRIT 34.4 % (35.4-49); HEMOGLOBIN 11.3 GM/dL (11.7-16.9); LYMPH % 11.2 % (8-40); MCH 29.4 pg (25.7-33.7); MCHC 32.8 g/dl (32.0-35.9); MEAN CELL VOLUME 89.6 fl (80-96); MEAN PLT VOLUME 7.7 fl (7.5-11.1); MONO % 3.9 % (3.8-10.2); NEUT % 82.5 % (42.8-82.8); PLATELET COUNT 338 10^3/uL (134-434); RBC 3.84 M/mm3 (4.00-5.60); RDW 16.2 % (11.9-15.9); WHITE BLOOD COUNT 13.4 K/mm3 (4.0-10.0)
[2021-01-22 14:00] LABS: CALCIUM 8.2 mg/dL (8.5-10.1)
[2021-01-22 14:01] LABS: ALBUMIN 2.9 g/dl (3.4-5.0); BLOOD UREA NITROGEN 24.8 mg/dL (7-18); CREATININE 1.3 mg/dL (0.55-1.3); MAGNESIUM 2.4 mg/dL (1.8-2.4)
[2021-01-22 14:05] LABS: BILIRUBIN,TOTAL 0.3 mg/dL (0.2-1); TOT PROT 6.6 g/dl (6.4-8.2)
== END 2021-01-22 14:03 | disposition home or self-care (01) | DRG 140 ==
LOC: JER 09:13 → JERBED 13:50 → J5S 15:38
PROVIDERS: ADMIT Internal Medicine; ATTEND Nurse Practitioner Family
DX: J44.1 Chronic obstructive pulmonary disease with (acute) exacerbation (principal); J96.11 Chronic respiratory failure with hypoxia; J18.9 Pneumonia, unspecified organism; F11.20 Opioid dependence, uncomplicated; Z99.81 Dependence on supplemental oxygen; Z86.718 Personal history of other venous thrombosis and embolism; Z79.01 Long term (current) use of anticoagulants; J44.0 Chronic obstructive pulmonary disease with (acute) lower respiratory infection; Z86.711 Personal history of pulmonary embolism; D64.9 Anemia, unspecified; I10 Essential (primary) hypertension; E78.5 Hyperlipidemia, unspecified; K21.9 Gastro-esophageal reflux disease without esophagitis; J98.11 Atelectasis
CPT/HCPCS: 36415; 71045-TC-FY; 71250-TC; 80053; 80307; 81003; 82550; 82553; 82728; 82803; 83540; 83550; 83605; 83735; 83880; 84100; 84484; 85025; 87040; 87070; 87086; 87205; 87899; 90686; 93005; 93010; 93306-TC; 94010; 94640; 94761; 99285-25; C9803; G0008; J0131; U0003; U0005

== ENCOUNTER 2021-07-25 15:28 | Inpatient (IN) | payer OTHER ==
[2021-07-25] MEDS ORDERED: MAGNESIUM 1GM/D5W - 1 GM/100 ML IVPB IVPB ONE (17:36)
[2021-07-25] MEDS ORDERED: ALBUTEROL SO4 2.5/IPRATROPIUM 0.5 INH SOL 3 ML VIAL.NEB. NEB ONE (17:37)
[2021-07-25] MEDS ORDERED: CEFTRIAXONE 1 GM in DEXTROSE 5%-WATER - 50 ML IVPB ONE (17:43)
[2021-07-25] MEDS: ALBUTEROL SO4 2.5/IPRATROPIUM 0.5 INH SOL 3 ML VIAL.NEB. NEB SCH ×3 (17:47→18:15)
[2021-07-25] MEDS ORDERED: methylPREDNISolone NA SUCC 125 MG/2 ML VIAL IVPB ONE (18:02)
[2021-07-25 18:05] LABS: BASO % 0.3 % (0-2.0); EOS % 0.3 % (0-4.5); HEMATOCRIT 33.4 % (35.4-49); HEMOGLOBIN 11.1 GM/dL (11.7-16.9); LYMPH % 5.2 % (8-40); MCH 29.5 pg (25.7-33.7); MCHC 33.1 g/dl (32.0-35.9); MEAN CELL VOLUME 89.1 fl (80-96); MEAN PLT VOLUME 8.5 fl (7.5-11.1); MONO % 5.3 % (3.8-10.2); NEUT % 88.9 % (42.8-82.8); PLATELET COUNT 235 10^3/uL (134-434); RBC 3.74 M/mm3 (4.00-5.60); RDW 16.6 % (11.9-15.9); WHITE BLOOD COUNT 9.6 K/mm3 (4.0-10.0)
[2021-07-25] MEDS ORDERED: methylPREDNISolone NA SUCC 125 MG/2 ML VIAL ONE (18:15)
[2021-07-25] MEDS ORDERED: CEFTRIAXONE 1 GM/50 ML BAG ONE (18:15)
[2021-07-25 18:33] LABS: CALCIUM 8.5 mg/dL (8.5-10.1)
[2021-07-25 18:35] LABS: ALBUMIN 3.3 g/dl (3.4-5.0); BLOOD UREA NITROGEN 25.8 mg/dL (7-18); MAGNESIUM 2.1 mg/dL (1.8-2.4)
[2021-07-25] MEDS ORDERED: DOXYCYCLINE INJECTION 100 MG in DEXTROSE 5%-WATER 100 ML IVPB ONE (18:37)
[2021-07-25 18:38] LABS: CREATININE 1.2 mg/dL (0.55-1.3)
[2021-07-25 18:39] LABS: BILIRUBIN,TOTAL 0.5 mg/dL (0.2-1); TOT PROT 7.5 g/dl (6.4-8.2)
[2021-07-25 18:43] LABS: N-TERMINAL BNP 1897.6 pg/ml (5-125)
[2021-07-25] MEDS ORDERED: DOXYCYCLINE HYCLATE 100 MG VIAL ONE (18:48)
[2021-07-25] MEDS ORDERED: ACETAMINOPHEN 325 MG TABLET (FP) PO PRN (21:01)
[2021-07-25] MEDS: BUDESONIDE/FORMETEROL FUMARATE 160/4.5 mcg INHALER IH SCH (22:48)
[2021-07-25] MEDS ORDERED: MELATONIN 5 MG TABLETS ONE (22:52)
[2021-07-25] MEDS: MELATONIN 5 MG TABLETS PO SCH (22:57)
[2021-07-26] MEDS: methylPREDNISolone NA SUCC 40 MG/1 ML VIAL IVPUSH SCH ×3 (01:48→17:11)
[2021-07-26 02:44] VITALS: BMI 37.8
[2021-07-26 02:55] LABS: INR 1.23 (0.83-1.09); PROTHROMBIN TIME (PATIENT) 14.2 SEC (9.7-13.0)
[2021-07-26 02:58] LABS: ACTIVATED PTT 28.1 SECONDS (25.2-36.5)
[2021-07-26] MEDS: methaDONE HCL 40 MG DISPERSABLE TABLET PO SCH (06:56)
[2021-07-26 07:40] LABS: HEMATOCRIT 34.2 % (35.4-49); HEMOGLOBIN 11.2 GM/dL (11.7-16.9); MCH 29.2 pg (25.7-33.7); MCHC 32.7 g/dl (32.0-35.9); MEAN CELL VOLUME 89.3 fl (80-96); MEAN PLT VOLUME 8.8 fl (7.5-11.1); PLATELET COUNT 239 10^3/uL (134-434); RBC 3.83 M/mm3 (4.00-5.60); WHITE BLOOD COUNT 5.1 K/mm3 (4.0-10.0)
[2021-07-26 07:42] LABS: CALCIUM 8.6 mg/dL (8.5-10.1)
[2021-07-26 07:43] LABS: ALBUMIN 3.2 g/dl (3.4-5.0); BLOOD UREA NITROGEN 20.5 mg/dL (7-18); MAGNESIUM 2.4 mg/dL (1.8-2.4)
[2021-07-26 07:45] LABS: BILIRUBIN,TOTAL 0.4 mg/dL (0.2-1); CREATININE 1.1 mg/dL (0.55-1.3); PHOSPHOROUS 2.9 mg/dL (2.5-4.9); TOT PROT 7.2 g/dl (6.4-8.2)
[2021-07-26] MEDS ORDERED: DEXTROSE 5%-WATER - 50 ML IVPB ONE (09:08)
[2021-07-26] MEDS ORDERED: cefTRIAXone SODIUM 1 GM VIAL ONE (09:08)
[2021-07-26] MEDS: FERROUS SO4 325 MG TABLET (FP) PO SCH (09:52)
[2021-07-26] MEDS: ALLOPURINOL 100 MG TABLET (FP) PO SCH (09:52)
[2021-07-26] MEDS: TAMSULOSIN HCL 0.4 MG CAP PO SCH (09:52)
[2021-07-26] MEDS: LOSARTAN POTASSIUM 50 MG TABLET PO SCH (09:52)
[2021-07-26] MEDS: CEFTRIAXONE 1 GM in DEXTROSE 5%-WATER - 50 ML IVPB SCH (09:55)
[2021-07-26] MEDS ORDERED: TIOTROPIUM BROMIDE 2.5 MCG (SPIRIVA) RESPIMAT INHALER IH SCH (10:00)
[2021-07-26] MEDS ORDERED: ENOXAPARIN NA (PORCINE) 40 MG/0.4 ML DISP.SYRIN SQ SCH (10:00)
[2021-07-26] MEDS: BUDESONIDE/FORMETEROL FUMARATE 160/4.5 mcg INHALER IH SCH ×2 (10:01→21:55)
[2021-07-26] MEDS: ALBUTEROL SO4 2.5/IPRATROPIUM 0.5 INH SOL 3 ML VIAL.NEB. NEB SCH ×4 (10:01→20:00)
[2021-07-26] MEDS: GABAPENTIN 300 MG CAPSULE PO SCH ×2 (16:08→21:47)
[2021-07-26] MEDS: RIVAROXABAN 20 MG TABLET PO SCH (17:11)
[2021-07-26] MEDS: ROSUVASTATIN CA 10 MG TABLET PO SCH (21:47)
[2021-07-26] MEDS: MELATONIN 5 MG TABLETS PO SCH (21:54)
[2021-07-27] MEDS: methylPREDNISolone NA SUCC 40 MG/1 ML VIAL IVPUSH SCH ×3 (01:59→17:22)
[2021-07-27] MEDS: GABAPENTIN 300 MG CAPSULE PO SCH ×3 (06:01→21:44)
[2021-07-27] MEDS: methaDONE HCL 40 MG DISPERSABLE TABLET PO SCH (06:01)
[2021-07-27] MEDS: ALBUTEROL SO4 2.5/IPRATROPIUM 0.5 INH SOL 3 ML VIAL.NEB. NEB SCH ×4 (07:27→20:41)
[2021-07-27 08:01] LABS: BASO % 0.2 % (0-2.0); HEMATOCRIT 33.6 % (35.4-49); HEMOGLOBIN 11.3 GM/dL (11.7-16.9); LYMPH % 4.6 % (8-40); MCH 29.9 pg (25.7-33.7); MCHC 33.8 g/dl (32.0-35.9); MEAN CELL VOLUME 88.6 fl (80-96); MEAN PLT VOLUME 8.5 fl (7.5-11.1); MONO % 2.7 % (3.8-10.2); NEUT % 92.5 % (42.8-82.8); PLATELET COUNT 256 10^3/uL (134-434); RBC 3.79 M/mm3 (4.00-5.60)
[2021-07-27 08:15] LABS: ALBUMIN 3.1 g/dl (3.4-5.0); BLOOD UREA NITROGEN 19.7 mg/dL (7-18); CALCIUM 8.8 mg/dL (8.5-10.1)
[2021-07-27 08:19] LABS: BILIRUBIN,TOTAL 0.4 mg/dL (0.2-1); CREATININE 0.9 mg/dL (0.55-1.3)
[2021-07-27 09:58] LABS: ANISOCYTOSIS 0; HELMET CELLS 0; HOWELL-JOLLY BODIES 0; MACROCYTOSIS 0; OVALOCYTE 0; ROULEAU 0; SICKELED CELLS 0; TARGET CELLS 0; TEAR DROP CELLS 0; TOXIC GRANULATION 0
[2021-07-27] MEDS ORDERED: DEXTROSE 5%-WATER - 50 ML IVPB ONE (10:35)
[2021-07-27] MEDS ORDERED: cefTRIAXone SODIUM 1 GM VIAL ONE (10:35)
[2021-07-27] MEDS: CEFTRIAXONE 1 GM in DEXTROSE 5%-WATER - 50 ML IVPB SCH (10:40)
[2021-07-27] MEDS: ALLOPURINOL 100 MG TABLET (FP) PO SCH (10:41)
[2021-07-27] MEDS: FERROUS SO4 325 MG TABLET (FP) PO SCH (10:41)
[2021-07-27] MEDS: BUDESONIDE/FORMETEROL FUMARATE 160/4.5 mcg INHALER IH SCH ×2 (10:41→21:45)
[2021-07-27] MEDS: LOSARTAN POTASSIUM 50 MG TABLET PO SCH (10:41)
[2021-07-27] MEDS: TAMSULOSIN HCL 0.4 MG CAP PO SCH (10:41)
[2021-07-27] MEDS: RIVAROXABAN 20 MG TABLET PO SCH (17:22)
[2021-07-27] MEDS: MELATONIN 5 MG TABLETS PO SCH (21:44)
[2021-07-27] MEDS: ROSUVASTATIN CA 10 MG TABLET PO SCH (21:44)
[2021-07-28] MEDS: methylPREDNISolone NA SUCC 40 MG/1 ML VIAL IVPUSH SCH ×3 (03:00→18:10)
[2021-07-28] MEDS: methaDONE HCL 40 MG DISPERSABLE TABLET PO SCH (05:11)
[2021-07-28] MEDS: GABAPENTIN 300 MG CAPSULE PO SCH ×3 (05:12→22:10)
[2021-07-28] MEDS: ALBUTEROL SO4 2.5/IPRATROPIUM 0.5 INH SOL 3 ML VIAL.NEB. NEB SCH ×4 (09:07→20:50)
[2021-07-28] MEDS ORDERED: DEXTROSE 5%-WATER - 50 ML IVPB ONE (10:21)
[2021-07-28] MEDS ORDERED: cefTRIAXone SODIUM 1 GM VIAL ONE (10:21)
[2021-07-28] MEDS: FERROUS SO4 325 MG TABLET (FP) PO SCH (10:30)
[2021-07-28] MEDS: ALLOPURINOL 100 MG TABLET (FP) PO SCH (10:30)
[2021-07-28] MEDS: TAMSULOSIN HCL 0.4 MG CAP PO SCH (10:30)
[2021-07-28] MEDS: LOSARTAN POTASSIUM 50 MG TABLET PO SCH (10:30)
[2021-07-28] MEDS: CEFTRIAXONE 1 GM in DEXTROSE 5%-WATER - 50 ML IVPB SCH (10:31)
[2021-07-28] MEDS: BUDESONIDE/FORMETEROL FUMARATE 160/4.5 mcg INHALER IH SCH ×2 (10:35→22:19)
[2021-07-28] MEDS: RIVAROXABAN 20 MG TABLET PO SCH (18:10)
[2021-07-28] MEDS: MELATONIN 5 MG TABLETS PO SCH (22:12)
[2021-07-28] MEDS: ROSUVASTATIN CA 10 MG TABLET PO SCH (22:14)
[2021-07-29] MEDS: methylPREDNISolone NA SUCC 40 MG/1 ML VIAL IVPUSH SCH ×2 (04:40→09:53)
[2021-07-29] MEDS: methaDONE HCL 40 MG DISPERSABLE TABLET PO SCH (05:42)
[2021-07-29] MEDS: GABAPENTIN 300 MG CAPSULE PO SCH (05:43)
[2021-07-29] MEDS: ALBUTEROL SO4 2.5/IPRATROPIUM 0.5 INH SOL 3 ML VIAL.NEB. NEB SCH ×2 (07:26→11:41)
[2021-07-29] MEDS ORDERED: cefTRIAXone SODIUM 1 GM VIAL ONE (09:22)
[2021-07-29] MEDS ORDERED: DEXTROSE 5%-WATER - 50 ML IVPB ONE (09:22)
[2021-07-29] MEDS: LOSARTAN POTASSIUM 50 MG TABLET PO SCH (09:52)
[2021-07-29] MEDS: FERROUS SO4 325 MG TABLET (FP) PO SCH (09:52)
[2021-07-29] MEDS: ALLOPURINOL 100 MG TABLET (FP) PO SCH (09:52)
[2021-07-29] MEDS: TAMSULOSIN HCL 0.4 MG CAP PO SCH (09:52)
[2021-07-29] MEDS: CEFTRIAXONE 1 GM in DEXTROSE 5%-WATER - 50 ML IVPB SCH (09:53)
[2021-07-29] MEDS: BUDESONIDE/FORMETEROL FUMARATE 160/4.5 mcg INHALER IH SCH (09:53)
[2021-07-29 11:47] VITALS: BP 124/85; PULSE 99; TEMP 97.5
== END 2021-07-29 13:33 | disposition home or self-care (01) | DRG 140 ==
LOC: JER 15:28 → JERBED 18:45 → J4W 07-26 01:30
PROVIDERS: ADMIT Hospitalist
DX: J44.1 Chronic obstructive pulmonary disease with (acute) exacerbation (principal); J96.11 Chronic respiratory failure with hypoxia; Z99.81 Dependence on supplemental oxygen; F11.20 Opioid dependence, uncomplicated; J06.9 Acute upper respiratory infection, unspecified; Z86.718 Personal history of other venous thrombosis and embolism; Z86.711 Personal history of pulmonary embolism; I10 Essential (primary) hypertension; Z79.01 Long term (current) use of anticoagulants; K21.9 Gastro-esophageal reflux disease without esophagitis; E78.5 Hyperlipidemia, unspecified; R94.31 Abnormal electrocardiogram [ECG] [EKG]; N40.0 Benign prostatic hyperplasia without lower urinary tract symptoms; M10.9 Gout, unspecified; F32.9 Major depressive disorder, single episode, unspecified; F41.9 Anxiety disorder, unspecified
CPT/HCPCS: 36415; 71045-TC-FY; 80053; 80061; 83036; 83735; 83880; 84100; 84443; 84484; 85025; 85027; 85610; 85730; 87040; 87070; 87205; 87804; 93005; 93010; 94010; 94640; 97116-GP; 97162-GP; 99285-25; C9803-CS; U0003; U0005

== ENCOUNTER 2021-08-10 06:54 | Inpatient (IN) | payer OTHER ==
[2021-08-10 07:07] VITALS: BMI 36.6
[2021-08-10] MEDS ORDERED: methaDONE HCL 10 MG TABLET PO ONE (07:57)
[2021-08-10] MEDS ORDERED: methaDONE HCL 40 MG DISPERSABLE TABLET ONE (08:09)
[2021-08-10 08:25] LABS: BASO % 0.2 % (0-2.0); EOS % 0.8 % (0-4.5); HEMATOCRIT 35.5 % (35.4-49); HEMOGLOBIN 11.6 GM/dL (11.7-16.9); LYMPH % 4.6 % (8-40); MCH 29.4 pg (25.7-33.7); MCHC 32.7 g/dl (32.0-35.9); MEAN CELL VOLUME 89.9 fl (80-96); MEAN PLT VOLUME 8.8 fl (7.5-11.1); MONO % 5.5 % (3.8-10.2); NEUT % 88.9 % (42.8-82.8); PLATELET COUNT 187 10^3/uL (134-434); RBC 3.95 M/mm3 (4.00-5.60); RDW 16.2 % (11.9-15.9); WHITE BLOOD COUNT 11.6 K/mm3 (4.0-10.0)
[2021-08-10 08:33] LABS: ACTIVATED PTT 25.3 SECONDS (25.2-36.5); INR 1.14 (0.83-1.09); PROTHROMBIN TIME (PATIENT) 13.1 SEC (9.7-13.0)
[2021-08-10 08:43] LABS: VENOUS BASE EXCESS 1.4 mmol/L (-2-2); VENOUS PCO2 38.1 mmHg (38-52); VENOUS PH 7.44 (7.310-7.410)
[2021-08-10 08:52] LABS: ALBUMIN 3.3 g/dl (3.4-5.0); BLOOD UREA NITROGEN 22.2 mg/dL (7-18); CALCIUM 8.6 mg/dL (8.5-10.1)
[2021-08-10 08:55] LABS: CREATININE 1.1 mg/dL (0.55-1.3)
[2021-08-10 08:57] LABS: BILIRUBIN,TOTAL 0.7 mg/dL (0.2-1); TOT PROT 6.6 g/dl (6.4-8.2)
[2021-08-10 09:01] LABS: N-TERMINAL BNP 2184.4 pg/ml (5-125)
[2021-08-10] MEDS ORDERED: FUROSEMIDE 40 MG/4 ML INJECTABLE VIAL IVPUSH ONE (09:27)
[2021-08-10] MEDS ORDERED: FUROSEMIDE 40 MG/4 ML INJECTABLE VIAL ONE (09:40)
[2021-08-10] MEDS ORDERED: ALBUTEROL SO4 HFA INHALER IH PRN (11:53)
[2021-08-10] MEDS: ALBUTEROL SO4 2.5/IPRATROPIUM 0.5 INH SOL 3 ML VIAL.NEB. NEB SCH ×3 (12:23→20:14)
[2021-08-10] MEDS ORDERED: DOXYCYCLINE HYCLATE 100 MG VIAL ONE ×2 (13:46→21:13)
[2021-08-10] MEDS ORDERED: DEXTROSE 5%-WATER 100 ML IVPB ONE ×2 (13:47→21:13)
[2021-08-10] MEDS: methylPREDNISolone NA SUCC 40 MG/1 ML VIAL IVPUSH SCH ×2 (14:03→22:10)
[2021-08-10] MEDS: DOXYCYCLINE INJECTION 100 MG in DEXTROSE 5%-WATER 100 ML IVPB SCH ×2 (14:03→22:11)
[2021-08-10] MEDS ORDERED: ROSUVASTATIN CA 10 MG TABLET PO SCH (22:00)
[2021-08-10] MEDS: BUDESONIDE/FORMETEROL FUMARATE 160/4.5 mcg INHALER IH SCH (23:45)
[2021-08-11] MEDS ORDERED: LORazepam 1 MG TABLET PO ONE (03:41)
[2021-08-11 07:42] LABS: HEMATOCRIT 37.7 % (35.4-49); HEMOGLOBIN 12.3 GM/dL (11.7-16.9); MCH 29.4 pg (25.7-33.7); MCHC 32.5 g/dl (32.0-35.9); MEAN CELL VOLUME 90.5 fl (80-96); MEAN PLT VOLUME 8.8 fl (7.5-11.1); PLATELET COUNT 200 10^3/uL (134-434); RBC 4.17 M/mm3 (4.00-5.60); RDW 16.2 % (11.9-15.9); WHITE BLOOD COUNT 7.3 K/mm3 (4.0-10.0)
[2021-08-11] MEDS ORDERED: methaDONE HCL 40 MG DISPERSABLE TABLET PO SCH (08:15)
[2021-08-11] MEDS: ALBUTEROL SO4 2.5/IPRATROPIUM 0.5 INH SOL 3 ML VIAL.NEB. NEB SCH ×4 (08:21→20:00)
[2021-08-11 08:24] LABS: CALCIUM 8.5 mg/dL (8.5-10.1)
[2021-08-11 08:25] LABS: ALBUMIN 3.3 g/dl (3.4-5.0); BLOOD UREA NITROGEN 19.8 mg/dL (7-18)
[2021-08-11 08:29] LABS: BILIRUBIN,TOTAL 0.5 mg/dL (0.2-1); TOT PROT 6.8 g/dl (6.4-8.2)
[2021-08-11] MEDS ORDERED: TAMSULOSIN HCL 0.4 MG CAP PO SCH (08:30)
[2021-08-11] MEDS ORDERED: DEXTROSE 5%-WATER 100 ML IVPB ONE ×2 (09:08→22:00)
[2021-08-11] MEDS ORDERED: DOXYCYCLINE HYCLATE 100 MG VIAL ONE ×2 (09:08→21:59)
[2021-08-11] MEDS ORDERED: cefTRIAXone SODIUM 1 GM VIAL ONE (09:08)
[2021-08-11] MEDS ORDERED: DEXTROSE 5%-WATER - 50 ML IVPB ONE (09:08)
[2021-08-11] MEDS: methylPREDNISolone NA SUCC 40 MG/1 ML VIAL IVPUSH SCH ×2 (09:15→22:35)
[2021-08-11] MEDS: DOXYCYCLINE INJECTION 100 MG in DEXTROSE 5%-WATER 100 ML IVPB SCH ×2 (09:16→22:37)
[2021-08-11] MEDS: BUDESONIDE/FORMETEROL FUMARATE 160/4.5 mcg INHALER IH SCH ×2 (09:17→22:36)
[2021-08-11] MEDS ORDERED: PANTOPRAZOLE 40 MG TABLET PO SCH (10:00)
[2021-08-11] MEDS ORDERED: ALLOPURINOL 100 MG TABLET (FP) PO SCH (10:00)
[2021-08-11] MEDS ORDERED: RIVAROXABAN 20 MG TABLET PO SCH (10:00)
[2021-08-11] MEDS ORDERED: CEFTRIAXONE 1 GM in DEXTROSE 5%-WATER - 50 ML IVPB SCH (10:00)
[2021-08-11] MEDS ORDERED: LOSARTAN POTASSIUM 50 MG TABLET PO SCH (10:00)
[2021-08-11] MEDS ORDERED: CITALOPRAM HYDROBROMIDE 20 MG TABLET PO SCH (10:00)
[2021-08-11] MEDS ORDERED: TIOTROPIUM BROMIDE 2.5 MCG (SPIRIVA) RESPIMAT INHALER IH SCH (10:00)
[2021-08-11] MEDS ORDERED: ALBUTEROL SO4 HFA INHALER IH PRN (14:48)
[2021-08-11] MEDS: ROSUVASTATIN CA 10 MG TABLET PO SCH (22:35)
[2021-08-12] MEDS: MELATONIN 5 MG TABLETS PO PRN ×2 (00:39→21:34)
[2021-08-12] MEDS: methaDONE HCL 40 MG DISPERSABLE TABLET PO SCH (05:36)
[2021-08-12] MEDS: ALBUTEROL SO4 2.5/IPRATROPIUM 0.5 INH SOL 3 ML VIAL.NEB. NEB SCH ×4 (08:52→19:47)
[2021-08-12 09:09] LABS: BASO % 0.4 % (0-2.0); HEMATOCRIT 32.4 % (35.4-49); HEMOGLOBIN 10.7 GM/dL (11.7-16.9); LYMPH % 5.1 % (8-40); MCH 29.5 pg (25.7-33.7); MEAN CELL VOLUME 89.4 fl (80-96); MEAN PLT VOLUME 8.5 fl (7.5-11.1); MONO % 3.5 % (3.8-10.2); PLATELET COUNT 203 10^3/uL (134-434); RBC 3.62 M/mm3 (4.00-5.60); RDW 15.8 % (11.9-15.9)
[2021-08-12] MEDS ORDERED: DEXTROSE 5%-WATER 100 ML IVPB ONE ×2 (09:17→20:42)
[2021-08-12] MEDS ORDERED: DOXYCYCLINE HYCLATE 100 MG VIAL ONE ×2 (09:17→20:42)
[2021-08-12] MEDS ORDERED: DEXTROSE 5%-WATER - 50 ML IVPB ONE (09:18)
[2021-08-12] MEDS ORDERED: cefTRIAXone SODIUM 1 GM VIAL ONE (09:18)
[2021-08-12] MEDS: CEFTRIAXONE 1 GM in DEXTROSE 5%-WATER - 50 ML IVPB SCH (09:26)
[2021-08-12] MEDS: methylPREDNISolone NA SUCC 40 MG/1 ML VIAL IVPUSH SCH ×2 (09:26→21:30)
[2021-08-12] MEDS: LOSARTAN POTASSIUM 50 MG TABLET PO SCH (09:27)
[2021-08-12] MEDS: PANTOPRAZOLE 40 MG TABLET PO SCH (09:27)
[2021-08-12] MEDS: CITALOPRAM HYDROBROMIDE 20 MG TABLET PO SCH (09:28)
[2021-08-12] MEDS: TAMSULOSIN HCL 0.4 MG CAP PO SCH (09:28)
[2021-08-12] MEDS: BUDESONIDE/FORMETEROL FUMARATE 160/4.5 mcg INHALER IH SCH ×2 (09:28→21:35)
[2021-08-12] MEDS: DOXYCYCLINE INJECTION 100 MG in DEXTROSE 5%-WATER 100 ML IVPB SCH ×2 (09:28→21:30)
[2021-08-12 09:33] LABS: CALCIUM 8.3 mg/dL (8.5-10.1)
[2021-08-12 09:34] LABS: BLOOD UREA NITROGEN 17.2 mg/dL (7-18)
[2021-08-12 10:12] LABS: ANISOCYTOSIS 0; MACROCYTOSIS 0; PLATELET ESTIMATE NORMAL
[2021-08-12] MEDS: ALLOPURINOL 100 MG TABLET (FP) PO SCH (12:58)
[2021-08-12 14:34] LABS: MAGNESIUM 2.4 mg/dL (1.8-2.4)
[2021-08-12 14:37] LABS: PHOSPHOROUS 4.1 mg/dL (2.5-4.9)
[2021-08-12] MEDS: RIVAROXABAN 20 MG TABLET PO SCH (17:13)
[2021-08-12] MEDS: ROSUVASTATIN CA 10 MG TABLET PO SCH (21:30)
[2021-08-13] MEDS ORDERED: MAGNESIUM SULF 50% (8.12 MEQ/2 ML-1 GM VIAL) IVPB ONE ×2 (05:08→09:27)
[2021-08-13] MEDS: methaDONE HCL 40 MG DISPERSABLE TABLET PO SCH (06:28)
[2021-08-13 08:10] LABS: HEMATOCRIT 32.3 % (35.4-49); HEMOGLOBIN 10.8 GM/dL (11.7-16.9); MCH 29.6 pg (25.7-33.7); MCHC 33.4 g/dl (32.0-35.9); MEAN CELL VOLUME 88.6 fl (80-96); MEAN PLT VOLUME 8.2 fl (7.5-11.1); PLATELET COUNT 195 10^3/uL (134-434); RBC 3.64 M/mm3 (4.00-5.60); RDW 15.9 % (11.9-15.9)
[2021-08-13 08:21] LABS: CALCIUM 8.3 mg/dL (8.5-10.1)
[2021-08-13] MEDS: ALBUTEROL SO4 2.5/IPRATROPIUM 0.5 INH SOL 3 ML VIAL.NEB. NEB SCH ×4 (08:21→20:03)
[2021-08-13 08:22] LABS: BLOOD UREA NITROGEN 17.6 mg/dL (7-18)
[2021-08-13 08:25] LABS: CREATININE 0.9 mg/dL (0.55-1.3)
[2021-08-13] MEDS ORDERED: DEXTROSE 5%-WATER 100 ML IVPB ONE ×2 (09:01→21:09)
[2021-08-13] MEDS ORDERED: DOXYCYCLINE HYCLATE 100 MG VIAL ONE ×2 (09:01→21:09)
[2021-08-13] MEDS ORDERED: cefTRIAXone SODIUM 1 GM VIAL ONE (09:02)
[2021-08-13] MEDS ORDERED: DEXTROSE 5%-WATER - 50 ML IVPB ONE (09:02)
[2021-08-13 09:25] LABS: MAGNESIUM 2.9 mg/dL (1.8-2.4)
[2021-08-13] MEDS: PANTOPRAZOLE 40 MG TABLET PO SCH (09:30)
[2021-08-13] MEDS: TAMSULOSIN HCL 0.4 MG CAP PO SCH (09:30)
[2021-08-13] MEDS: CITALOPRAM HYDROBROMIDE 20 MG TABLET PO SCH (09:30)
[2021-08-13] MEDS: LOSARTAN POTASSIUM 50 MG TABLET PO SCH (09:30)
[2021-08-13] MEDS: methylPREDNISolone NA SUCC 40 MG/1 ML VIAL IVPUSH SCH ×2 (09:30→21:59)
[2021-08-13] MEDS: CEFTRIAXONE 1 GM in DEXTROSE 5%-WATER - 50 ML IVPB SCH (09:31)
[2021-08-13] MEDS: DOXYCYCLINE INJECTION 100 MG in DEXTROSE 5%-WATER 100 ML IVPB SCH ×2 (09:34→21:59)
[2021-08-13] MEDS: ALLOPURINOL 100 MG TABLET (FP) PO SCH (09:34)
[2021-08-13] MEDS: BUDESONIDE/FORMETEROL FUMARATE 160/4.5 mcg INHALER IH SCH ×2 (09:34→22:00)
[2021-08-13 09:42] LABS: ANISOCYTOSIS 0; HELMET CELLS 0; HOWELL-JOLLY BODIES 0; MACROCYTOSIS 0; OVALOCYTE 0; ROULEAU 0; SICKELED CELLS 0; TARGET CELLS 0; TEAR DROP CELLS 0; TOXIC GRANULATION 0
[2021-08-13] MEDS: RIVAROXABAN 20 MG TABLET PO SCH (17:16)
[2021-08-13] MEDS: MELATONIN 5 MG TABLETS PO PRN (21:59)
[2021-08-13] MEDS: ROSUVASTATIN CA 10 MG TABLET PO SCH (22:00)
[2021-08-14 05:39] VITALS: BP 154/90; PULSE 93; TEMP 97.8
[2021-08-14] MEDS: methaDONE HCL 40 MG DISPERSABLE TABLET PO SCH (05:57)
[2021-08-14] MEDS: ALBUTEROL SO4 2.5/IPRATROPIUM 0.5 INH SOL 3 ML VIAL.NEB. NEB SCH ×2 (07:32→11:20)
[2021-08-14 08:26] LABS: BASO % 0.1 % (0-2.0); HEMATOCRIT 33.5 % (35.4-49); HEMOGLOBIN 10.9 GM/dL (11.7-16.9); LYMPH % 6.4 % (8-40); MCH 29.2 pg (25.7-33.7); MCHC 32.5 g/dl (32.0-35.9); MEAN PLT VOLUME 8.3 fl (7.5-11.1); MONO % 3.4 % (3.8-10.2); NEUT % 90.1 % (42.8-82.8); PLATELET COUNT 193 10^3/uL (134-434); RBC 3.72 M/mm3 (4.00-5.60); RDW 16.1 % (11.9-15.9); WHITE BLOOD COUNT 6.8 K/mm3 (4.0-10.0)
[2021-08-14 08:51] LABS: CALCIUM 8.5 mg/dL (8.5-10.1)
[2021-08-14 08:52] LABS: BLOOD UREA NITROGEN 17.7 mg/dL (7-18); MAGNESIUM 2.5 mg/dL (1.8-2.4)
[2021-08-14 08:54] LABS: CREATININE 0.9 mg/dL (0.55-1.3)
[2021-08-14] MEDS: DOXYCYCLINE INJECTION 100 MG in DEXTROSE 5%-WATER 100 ML IVPB SCH (09:27)
[2021-08-14] MEDS: CEFTRIAXONE 1 GM in DEXTROSE 5%-WATER - 50 ML IVPB SCH (09:27)
[2021-08-14] MEDS: methylPREDNISolone NA SUCC 40 MG/1 ML VIAL IVPUSH SCH (09:27)
[2021-08-14] MEDS ORDERED: DEXTROSE 5%-WATER 100 ML IVPB ONE (10:07)
[2021-08-14] MEDS ORDERED: DOXYCYCLINE HYCLATE 100 MG VIAL ONE (10:07)
[2021-08-14] MEDS ORDERED: DEXTROSE 5%-WATER - 50 ML IVPB ONE (10:08)
[2021-08-14] MEDS ORDERED: cefTRIAXone SODIUM 1 GM VIAL ONE (10:08)
[2021-08-14] MEDS: LOSARTAN POTASSIUM 50 MG TABLET PO SCH (10:52)
[2021-08-14] MEDS: ALLOPURINOL 100 MG TABLET (FP) PO SCH (10:52)
[2021-08-14] MEDS: CITALOPRAM HYDROBROMIDE 20 MG TABLET PO SCH (10:52)
[2021-08-14] MEDS: BUDESONIDE/FORMETEROL FUMARATE 160/4.5 mcg INHALER IH SCH (10:52)
[2021-08-14] MEDS: PANTOPRAZOLE 40 MG TABLET PO SCH (10:52)
[2021-08-14] MEDS: TAMSULOSIN HCL 0.4 MG CAP PO SCH (10:52)
== END 2021-08-14 14:49 | disposition home or self-care (01) | DRG 140 ==
LOC: JER 06:54 → JERBED 09:29 → J4W 12:54 → J7W 08-11 14:47 → OBSVTOIN 08-13 14:09
PROVIDERS: ADMIT Internal Medicine
DX: J44.1 Chronic obstructive pulmonary disease with (acute) exacerbation (principal); I10 Essential (primary) hypertension; E78.5 Hyperlipidemia, unspecified; J96.11 Chronic respiratory failure with hypoxia; F11.20 Opioid dependence, uncomplicated; N40.0 Benign prostatic hyperplasia without lower urinary tract symptoms; M10.9 Gout, unspecified; D64.9 Anemia, unspecified; Z86.718 Personal history of other venous thrombosis and embolism; Z86.711 Personal history of pulmonary embolism; Z99.81 Dependence on supplemental oxygen
CPT/HCPCS: 36415; 71046-TC-FY; 71275-TC; 80048; 80053; 82803; 83735; 83880; 84100; 85025; 85027; 85610; 85730; 87070; 87077; 87205; 93005; 93010; 93971-TC; 94640; 99285-25; C9803-CS; G0378; Q9967; U0003; U0005